=== PATIENT | male | born 1955 | race Caucasian/White ===

== ENCOUNTER 2017-08-10 06:41 | Inpatient (IN) | payer BC ==
[2017-08-09 14:22] VITALS: BP 127/91
[2017-08-09 15:10] LABS: HEMATOCRIT 42.1 % (39.2-51.8); HEMOGLOBIN 14.5 g/dL (13.7-18.0); WHITE BLOOD COUNT 8.4 x10^3/uL (3.4-10)
[2017-08-09 15:21] LABS: ASPARTATE AMINO TRANSFERASE 10 U/L (15-37); BLOOD UREA NITROGEN 20 mg/dL (7-18)
[~2017-08-10] VITALS: Ht 182.9 cm; Wt 89.6 kg
[~2017-08-10 06:41] MED LIST: ATOR20TA9 PO; ESZO3TAB28 PO; LEVO200T PO; METO25TA91 PO; RIVA20TA PO; ROSU20TA PO; SOTA120T26 PO; SOTA80TA PO
[2017-08-10] MEDS ORDERED: SODIUM CHLORIDE 0.9% 1,000 ML IV SCH (06:56)
[2017-08-10] MEDS ORDERED: LIDOCAINE 2%, 20ML ONE (07:28)
[2017-08-10] MEDS ORDERED: ADENOSINE 6 MG/2 ML ONE (07:28)
[2017-08-10] MEDS ORDERED: FENTANYL PF 100 MCG/2ML ONE (07:28)
[2017-08-10] MEDS ORDERED: MIDAZOLAM 1 MG/ML, 5ML ONE (07:28)
[2017-08-10] MEDS ORDERED: ISOPROTERENOL 0.2MG/ML, 5ML ONE (07:28)
[2017-08-10] MEDS ORDERED: HEPARIN 1,000 UNITS/ML, 10ML ONE (07:29)
[2017-08-10 09:08] VITALS: BP 130/85
[2017-08-10] MEDS: SOTALOL 80MG TABLET PO SCH ×2 (09:24→22:24)
[2017-08-10] MEDS ORDERED: ZOLPIDEM 5MG TABLET PO PRN (09:30)
[2017-08-10] MEDS: MEXILETINE 150 MG CAPSULE PO SCH ×2 (09:49→18:30)
[2017-08-10 15:32] VITALS: BP 108/66
[2017-08-10] MEDS: ACETAMINOPHEN 325 MG TABLET PO PRN ×2 (18:27→22:24)
[2017-08-10] MEDS ORDERED: FLU VACC QS2017-18 (36MOS+) UP/PF 0.5 ML IM-VACC ONE (20:00)
[2017-08-10 20:38] VITALS: BP 114/71
[2017-08-10] MEDS ORDERED: TEMPLATE NON-FORMULARY MED. (Eszopiclone** (Lunesta**) 3 MG) PO SCH (21:00)
[2017-08-10] MEDS ORDERED: ATORVASTATIN 20 MG TABLET PO SCH (21:00)
[2017-08-10 22:30] VITALS: BP 127/76
[2017-08-11 02:17] VITALS: BP 130/74
[2017-08-11] MEDS: MEXILETINE 150 MG CAPSULE PO SCH ×2 (02:19→08:34)
[2017-08-11] MEDS ORDERED: LEVOTHYROXINE 200 MCG TABLET PO SCH (06:00)
[2017-08-11] MEDS: SOTALOL 80MG TABLET PO SCH (08:35)
[2017-08-11] MEDS: ACETAMINOPHEN 325 MG TABLET PO PRN (08:35)
[2017-08-11] MEDS ORDERED: MEXI150C PO (08:46)
[2017-08-11] MEDS ORDERED: RIVAROXABAN 20 MG TABLET PO SCH (09:00)
[2017-08-11 09:25] VITALS: BP 125/81
== END 2017-08-11 10:45 | disposition home or self-care (01) | DRG 309 ==
LOC: CACL 06:41 → 5SO 09:01 → CACL 09:33 → DCLOUNGE 08-11 10:31
PROVIDERS: ADMIT Internal Medicine Cardiovascular Disease; ATTEND Internal Medicine Cardiovascular Disease
PROC: 02JA3ZZ Inspection of Heart, Percutaneous Approach (ICD-10-PCS; principal; 2017-08-10)
DX: I49.3 Ventricular premature depolarization (principal); D68.59 Other primary thrombophilia; I48.0 Paroxysmal atrial fibrillation; E03.9 Hypothyroidism, unspecified; E78.5 Hyperlipidemia, unspecified; I25.10 Atherosclerotic heart disease of native coronary artery without angina pectoris; Z79.899 Other long term (current) drug therapy
CPT/HCPCS: 36415; 71020; 80053; 85025; 85610; 85730; 93005; J0153; J1644; J2250; J3010; J3490